=== PATIENT | male | born 1990 | race Two or more races ===

== ENCOUNTER 2024-08-13 17:25 | Emergency (ER) | payer MEDICAID, SELFPAY ==
[2024-08-13 17:30] VITALS: BP 159/50; PULSE 103; RESP 18; TEMP 36.6; O2SAT 93
--- NOTE | 2024-08-13 17:36 | EKG_ITS ---
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
--- NOTE | 2024-08-13 17:39 | XR_ITS ---
Examination: CT brain head without contrast. 2-D sagittal coronal reconstructions Date and time of exam:August 13, 2024 1805 hrs. Indications: Patient fell today, injury to the head, altered mental status CTDI: vol (mGy):47.5 DLP: (mGycm):1000 Technique: Multiple CT axial sections of the brain have been obtained, 5 mm slice thickness. Contrast has not been administered. 2-D sagittal, coronal reconstructions have been obtained Low dose protocols were performed. One or more of the following dose reduction techniques were used; automated exposure control, adjustment of the mA and/or KV according to patient size, use of iterative reconstruction technique. Findings: Focal hyperdense area in the left inferior frontal region, axial image 24, coronal image 14, sagittal image 14 Small area of hemorrhage at this site cannot be excluded Ventricles are not enlarged No mass effect upon the ventricular system Cranial vault appears intact Impression: Recommend repeat CT brain scan with 3 mm slice thickness to exclude 22 mm focus of hemorrhage in the left frontal lobe
--- NOTE | 2024-08-13 17:39 | XR_ITS ---
Examination: CT cervical spine without contrast 2-D sagittal reconstructions 2-D coronal reconstructions 3-D reconstructions. Exam date and time:August 13, 2024 1805 hrs. Indications: Patient fell to the ground today with injury to the neck neck pain CTDI:vol (mGy) 7.63 DLP: (mGycm) 164 Technique: Multiple 2 mm axial sections of the cervical spine have been obtained. The coronal and sagittal reconstructions have been obtained. 3-D reconstructions have been obtained. Low dose protocols were performed. One or more of the following dose reduction techniques were used; automated exposure control, adjustment of the mA and/or KV according to patient size, use of iterative reconstruction technique. Findings: Axial sections demonstrate intact base of the skull. C1 exhibit satisfactory relationship to the odontoid. No acute cervical vertebral body fracture seen. Alignment posterior spinous processes satisfactory. Impression: No acute cervical fracture.
[2024-08-13] MEDS: SODIUM CHLORIDE 0.9% 1000 ML 1,000 ML 999 ML IV (17:43)
--- NOTE | 2024-08-13 17:43 | PD.EDRME ---
Rapid Medical Screening Exam RME Arrival date/time: 08/13/24 17:25 Chief Complaint: Trauma Time Seen by Provider: 08/13/24 17:35 Vital signs: Vital Signs Temperature 97.8 F 08/13/24 17:30 Pulse Rate 103 H 08/13/24 17:30 Respiratory Rate 18 08/13/24 17:30 Blood Pressure 159/50 H 08/13/24 17:30 Pulse Oximetry (%) 93 L 08/13/24 17:30 Oxygen Delivery Method Room Air 08/13/24 17:30 RME Narrative: 34 year old male presents to the Emergency Department BIB after a police pursuit due to agitated behavior. They were chasing him down the hallways and through several stores. He did require tasing and he ?flopped to the ground, onto his back without head injury . He had several episodes of emesis, and has remained poorly cooperative, and not responsive since. On exam he has dried vomit on both sides of his mouth, he does not respond to name, but he does respond to pain stimuli. He has an abrasion over his left shoulder. I have started the initial will be seen by additional provider.
[2024-08-13 17:44] VITALS: PULSE 122; RESP 22; O2SAT 94; BMI 20.3
--- NOTE | 2024-08-13 18:04 | PC.NURSE ---
PT TAKEN TO CT
[2024-08-13 18:15] VITALS: BP 129/74; PULSE 95; RESP 18; TEMP 36.5; O2SAT 95
[2024-08-13 18:20] LABS: Lactate (Lactic Acid) 9.7 mMol/L (0.4-2.0)
[2024-08-13 18:22] LABS: Basophils % (Auto) 1 % (0-2.5); Eosinophils # (Auto) 0.1 Thou/mm3 (0.0-0.5); Eosinophils % (Auto) 2 % (0-10); Hematocrit 39.7 % (41.0-53.0); Hemoglobin 13.6 g/dL (13.5-16.0); Immature Granulocytes % (Auto) 2 % (0-0); Immature Granulocytes Auto 0.14 Thou/mm3 (0.00-0.00); Lymphocytes # (Auto) 2.4 Thou/mm3 (1.0-4.8); Lymphocytes % (Auto) 31 % (10-50); Mean Corpuscular HGB Conc 34.3 g/dl (31.0-37.0); Mean Corpuscular Hemoglobin 26.9 pg (25.0-35.0); Mean Corpuscular Volume 79 fL (80-100); Monocytes # (Auto) 0.5 Thou/mm3 (0.0-0.8); Monocytes % (Auto) 6 % (0-12); Neutrophils # (Auto) 4.5 Thou/mm3 (1.8-7.7); Neutrophils % (Auto) 58 % (37-80); Nucleated Red Blood Cell % 0 /100 WBC (0); Platelet Count 152 Thou/mm3 (140-440); RDW Standard Deviation 34.7 fL (35.1-43.9); Red Blood Count 5.05 Miln/mm3 (4.50-5.90); White Blood Count 7.7 Thou/mm3 (3.8-10.6)
[2024-08-13 18:31] LABS: Alanine Aminotransferase 25 U/L (10-49); Albumin, Serum 4.8 gm/dL (3.5-5.0); Albumin/Globulin Ratio 1.8 (1.2-2.2); Alcohol, Blood Medical 254.6 mg/dL (0-10.0); Alkaline Phosphatase 90 U/L (46-116); Anion Gap 17 (7-16); Aspartate Amino Transferase 27 U/L (0-34); BUN/Creatinine Ratio 13 Ratio (12-20); Bilirubin,Total 0.4 mg/dL (0.3-1.2); Blood Urea Nitrogen 16 mg/dL (9-23); Calcium 9.2 mg/dL (8.3-10.6); Calcium (Corrected) 9.2 mg/dL (8.5-10.1); Carbon Dioxide 15.3 mMol/L (20.0-31.0); Chloride 109 mMol/L (98-107); Creatine Kinase 125 U/L (34-171); Creatinine (Component) 1.2 mg/dL (0.6-1.3); Estimated Creatinine Clearance 83.5 mL/min (>60); Globulin 2.6 gm/dL (2.3-3.5); Glucose 111 mg/dL (74-106); Osmolality,Calculated 283 (275-295); Potassium 3.5 mMol/L (3.4-5.1); Sodium 141 mMol/L (136-145); Total Protein 7.4 gm/dL (5.7-8.2); Troponin I < 0.020 ng/mL (0.0-0.045); eGFR > 60 See Note
--- NOTE | 2024-08-13 18:58 | XR_ITS ---
Examination: CT chest, without intravenous contrast.. 2-D sagittal and coronal reconstructions. 3-D reconstructions. Date and time of exam:August 13, 2024 1805 hrs. Indications: Patient fell today with injury to the chest chest pain abdomen pain CTDI vol (mgy) 13.51 DLP (MGycm)470 Technique: Multiple CT images, 3.0 mm slice thickness, obtained chest, abdomen, pelvis, with the high-resolution 64 slice scanner.. Sagittal and coronal 2-D reconstructions are obtained. 3-D reconstructions Low dose protocols were performed. One or more of the following dose reduction techniques were used; automated exposure control, adjustment of the mA and/or KV according to patient size, use of iterative reconstruction technique. Findings: This study is significantly limited secondary to patient motion Thoracic aorta pulmonary arteries appear intact No esophagus appears thickened No hemopericardium No pneumothorax pulmonary contusion or hemothorax The manubrium and the body the sternum intact, imaging reduced secondary to patient motion No thoracic vertebral body compression fracture Fractures right and left second ribs which appear old but clinical correlation advised No liver splenic or renal lesion or laceration Contracted gallbladder Impression: Study is significantly limited secondary to patient motion Thoracic aorta pulmonary arteries intact No hemopericardium, pneumothorax or pulmonary contusion No abdominal parenchymal laceration
--- NOTE | 2024-08-13 19:03 | PD.EDTRAUM ---
ED Trauma RME/HPI General Chief Complaint: Trauma Stated Complaint: TRAUMA Time Seen by Provider: 08/13/24 17:35 Arrival date/time: 08/13/24 17:25 RME / HPI RME / HPI narrative: 34-year-old male patient was brought to the hospital by the police after he had a [place] on foot and was and was tased. As per the officers the patient fell down to the ground after he got tased but there was no signs of tasers penetration in his body. They reported that the patient started to vomit and became agitated after being was arrested. The vomiting was persistent, of food content. When I assessed the patient he appears to be intoxicated, and was complaining of pain on the side of his chest. His saturations 93 on room air and improved to 95% on 2 L of oxygen. Related Data Allergies Allergy/AdvReac Type Severity Reaction Status Date / Time No Known Allergies Allergy Verified 09/10/23 03:13 ED Exam Narrative Physical exam: GEN: Lethargic, complaining of pain in the right side of the chest. Mouth covered with dry vomit. HEENT: NC/AC, oral mucosa moist, neck supple, no cervical spine tenderness CVS: RRR, S1-S2 present, no murmurs appreciated RESP: Tenderness on the palpation of the left side of the chest on the lateral area, no visible deformity, or bruises. CTAB GI:non distended, mild discomfort on palpation, spontaneous guarding, NBS MSK: able to move all 4 limbs, no lower extremity edema SKIN: warm and dry CHANGE HOUSE ATTENDANT: Unable to assess due to mental status. Course Quality Measures none Orders Category Date Time Status Aspiration precautions ONCE Care 08/13/24 20:14 Active Bedside Blood Glucose NOW Care 08/13/24 19:15 Active EKG (ED ONLY) *Do not use* NOW Care 08/13/24 17:36 Completed Insert IV NOW Care 08/13/24 17:36 Active Urinary Catheter QS Care 08/13/24 19:[address] cervical spine wo con Stat Exams 08/13/24 17:[address] chest abdomen wo Stat Exams 08/13/24 18:[address] head/brain wo con Stat Exams 08/13/24 17:39 Completed EKG (ED Only) Stat Exams 08/13/24 17:36 Draft XR chest 1V Stat Exams 08/13/24 17:36 Taken ABG [Arterial Blood Gas] Stat Lab 08/13/24 20:29 Completed Alcohol, Blood Medical Stat Lab 08/13/24 17:55 Completed BMP [Basic Metabolic Panel] Stat Lab 08/13/24 23:00 Ordered CBC Stat Lab 08/13/24 17:55 Completed CMP [Comprehensive Metabolic Panel] Stat Lab 08/13/24 17:55 Completed Creatine Kinase Stat Lab 08/13/24 17:55 Completed Drug Screen,Urine Stat Lab 08/13/24 23:00 Received Lactate (Lactic Acid) Routine Lab 08/13/24 23:17 Ordered Lactate (Lactic Acid) Stat Lab 08/13/24 17:55 Completed Lactic Acid, 3 HR Stat Lab 08/13/24 21:30 Completed Troponin I Stat Lab 08/13/24 17:55 Completed Urinalysis Stat Lab 08/13/24 23:00 Completed Folic Acid Inj Med 08/13/24 19:14 Discontinued 1 mg IVP X1 ONE Ondansetron Inj [Zofran Inj] Med 08/13/24 18:58 Discontinued 4 mg IV X1 ONE Sodium Chloride 0.9% 1000 ml [Ns] 1,000 ml Med 08/13/24 18:55 Discontinued IV 100 mls/hr Sodium Chloride 0.9% 1000 ml [Ns] 1,000 ml Med 08/13/24 17:35 Discontinued IV 999 mls/hr Sodium Chloride 0.9% 1000 ml [Ns] 1,000 ml Med 08/13/24 23:16 Discontinued IV 999 mls/hr Thiamine Inj [Vitamin B-1 Inj] 100 mg Med 08/13/24 19:14 Discontinued Sodium Chloride 0.9% [Ns] 100 ml IV X1 Vital Signs Vital signs: Vital Signs Temperature 97.8 F 08/13/24 17:30 Pulse Rate 103 H 08/13/24 17:30 Respiratory Rate 18 08/13/24 17:30 Blood Pressure 159/50 H 08/13/24 17:30 Pulse Oximetry (%) 93 L 08/13/24 17:30 Oxygen Delivery Method Room Air 08/13/24 17:30 Trauma MDM Narrative MDM Narrative:: Patient remained intoxicated and lethargic. He was given 1 L bolus of normal saline improved his heart rate from 103 on presentation to 95% and his blood pressure went down from 1 59-1 29 systolic. Temperature was within normal limits and saturation was 93 on room air was given 2 L of oxygen which improved his oxygen saturation to 95%. Chest x-ray, cervical CT, and brain CT seems to be normal however pending official reads. Due to the persistent tenderness in the right side of the stretcher on the left side of the chest and abdominal wall, and the persistent vomiting prescribe the patient Alexis, will order for him chest and abdomen CT scan to rule out any visceral injuries. And also to rule out any signs of aspiration due to his hypoxia. Specially after he was found to have anion gap metabolic acidosis and lactic acid level of 9.4. CT chest abdomen were negative for any acute injuries or visceral injuries. Lactic acid repeat went down from 9.4-2.0 with IV fluids. Patient vomiting has stopped, and he was sleeping comfortably on bed. Patient will be ready for discharge today back to police department. Patient data External records reviewed:: [facility] previous records Clinical information provided by:: patient and law enforcement Social determinants that could affect healthcare access:: alcohol use Patient has the following chronic illnesses:: None How is presenting disease/condition affected by chronic disease/condition?: no chronic disease Evaluation data The following diagnostics were reviewed and interpreted by me:: lab results, radiology exam(s) and EKG tracing(s) Lab and/or radiology exams considered but not ordered:: None Interpretation Summary: Multiple simple blunt trauma Medications / Prescriptions Medications or Prescriptions considered but not ordered:: None Medication administrations:: Medication Administration History Discontinued Medications Folic Acid (Folic Acid Inj 1 Mg/0.2 Ml) 1 mg IVP X1 ONE Stop: 08/13/24 19:15 Last Admin: 08/13/24 19:58 Dose: 1 mg Documented By: CCT Sodium Chloride (Ns) 1,000 mls @ 999 mls/hr IV .Q1H1M ONE Stop: 08/13/24 18:35 Last Infusion: 08/13/24 19:02 Dose: Infused Documented By: Admin: 08/13/24 17:43 Dose: 999 mls/hr Documented By: VG Sodium Chloride (Ns) 1,000 mls @ 100 mls/hr IV .Q10H GURWINDER Stop: 08/14/24 04:54 Last Admin: 08/13/24 19:58 Dose: 100 mls/hr Documented By: CCT Thiamine HCl 100 mg/ Sodium (Chloride) 101 mls @ 202 mls/hr IV X1 ONE Stop: 08/13/24 19:43 Last Infusion: 08/13/24 21:50 Dose: Infused Documented By: Admin: 08/13/24 19:57 Dose: 202 mls/hr Documented By: CCT Sodium Chloride (Ns) 1,000 mls @ 999 mls/hr IV .Q1H1M ONE Stop: 08/14/24 00:16 Ondansetron HCl (Ondansetron Inj 2 Mg/Ml Inj 2 Ml) 4 mg IV X1 ONE; Protocol Stop: 08/13/24 18:59 Last Admin: 08/13/24 19:57 Dose: 4 mg Documented By: CCT as above if given Consultations Consultation(s) initiated? (list below): No Diagnosis Trauma Differential Diagnosis: other (multiple simple blunt trauma) Most likely diagnosis given after review of the tests above:: Alcohol intoxication Admission Indicated Admission indicated?: not indicated Admission Request Was there a request for admission?: No Disposition Plan Disposition Plan: Discharge Discharge Attestation Discharge Attestation: The patient and all family members were given an opportunity to ask questions and understood the discharge instructions. Discharge instructions specifically effects, indications for sooner follow up or return to the emergency department, and the expected course of current diagnosis. Patient condition: Stable Discharge Plan Plan Patient Disposition: Senior Living/Court/Law Prescriptions/Referrals Referrals: No Primary/Family,Physician [Primary Care Provider] - In 1 week Problem List Clinical Impression: Alcohol intoxication, Blunt trauma of abdominal wall Patient/Caregiver Discharge Instructions Print Language: Sami
--- NOTE | 2024-08-13 19:34 | PC.NURSE ---
Pt taken to CT via alex
--- NOTE | 2024-08-13 19:45 | PRELIM_ITS ---
CT scan of the head without intravenous contrast (axial sections with sagittal and coronal reformats) August 13, 2024 1805 hours Clinical History: Trauma, AMS Comparison: No prior study is available f or comparison. Findings:No evidence of intracranial hemorrhage, mass effect or midline shift. The palmer tricles and CSF spaces are unremarkable. The calvarium is intact. The mastoid air cells and the visua lized paranasal sinuses are clear.Impression:No evidence of intracranial hemorrhage, midline shift or calvarial fracture. Report Electronically Signed By: Sonu Gann 08/13/2024 7:44:49 PM [EST ]
--- NOTE | 2024-08-13 19:48 | PRELIM_ITS ---
CT scan of the cervical spine without intravenous contrast (axial sections with sagittal and coronal reformats) August 13, 2024 1805 hours Clinical History: Trauma Comparison: No prior study is availa ble for comparison. Findings:There is no fracture or traumatic subluxation. There is straightening of the cervical lordosis, which may be due to muscle spasm or positioning. The prevertebral soft tissue s are unremarkable. There is mild scarring at the lung apices bilaterally.Impression:No evidence of f racture or traumatic subluxation. Report Electronically Signed By: Sonu Gann 08/13/2024 7: 47:39 PM [EST]
[2024-08-13] MEDS: THIAMINE INJ 100 MG in SODIUM CHLORIDE 0.9% 100 ML 202 MG IV (19:57)
[2024-08-13] MEDS: ONDANSETRON INJ 2 MG/ML INJ 2 ML 4 MG IV (19:57)
[2024-08-13] MEDS: SODIUM CHLORIDE 0.9% 1000 ML 1,000 ML 100 ML IV (19:58)
[2024-08-13] MEDS: FOLIC ACID INJ 1 MG/0.2 ML IVP (19:58)
[2024-08-13 20:00] VITALS: BP 114/71; PULSE 91; RESP 16; TEMP 36.3; O2SAT 96
[2024-08-13 20:37] LABS: Base Excess -4 (-3-3); HCO3 22 mEq/L (20-26); Inspired Oxygen, FIO2 21 %; O2 Saturation 97 % (91-98); PCO2 41 mmHg (32.0-48.0); PO2 89 mmHg (83-108); pH, Arterial 7.34 (7.35-7.45)
[2024-08-13 20:40] LABS: Allen Test Performed/OK; Puncture Site Right Radial
[2024-08-13 21:04] LABS: Reflex Lactate? Y
[2024-08-13 23:00] VITALS: BP 137/79; PULSE 81; RESP 18; TEMP 37; O2SAT 99
--- NOTE | 2024-08-13 23:06 | PRELIM_ITS ---
CT scan of the chest and abdomen without intravenous contrast. Axial sections with sagittal and coron al reformats. August 13, 2024 at 1936 hoursClinical History: Persistant vomiting, shortness of magaly th, post trauma.Comparison: No prior study is available for comparison. Findings:The evaluation is li mited due to motion artifact. The lungs are clear. There is no pneumothorax or pleural effusion. The aorta is normal on this noncontrast study. No evidence of mediastinal mass or lymphadenopathy. There is no pericardial effusion.The liver, gallbladder, spleen, pancreas, adrenals and kidneys are unremar kable on this noncontrast study.No evidence of bowel obstruction. The appendix is not visualized. The re is no free fluid or free air.No acute fracture is identified. Partially healed fractures of right and left anterior second ribs. Impression:No visceral or bony injury to the chest or abdomen. Repor t Electronically Signed By: Sonu Gann 08/13/2024 11:05:50 PM [EST]
[2024-08-13 23:17] LABS: Collection Type, Urine Clean Catch; RBC,Urine 0 /hpf (0-3); Squamous Epithelial Cell,Urine 0 /hpf (0-5); WBC,Urine 0 /hpf (0-5)
[2024-08-13 23:49] LABS: Bilirubin,Urine Negative (Negative); Blood,Urine Negative (Negative); Clarity,Urine Clear (Clear/Hazy); Color,Urine Colorless (Lt Yel-Yel); Glucose, Urine Negative (Negative); Hyaline Casts,Urine < 1 /hpf (0-1); Ketones,Urine Negative (Negative); Leukocyte Esterase,Urine Negative (Negative); Nitrite,Urine Negative (Negative); Protein,Urine Trace (Neg - Trace); Specific Gravity,Urine 1.014 (1.001-1.035); Urobilinogen,Urine Negative mg/dL (0.0-1.0)
[2024-08-14 00:01] LABS: Amphetamine/Methamp Scrn,U Positive (Negative); Barbiturate Screen,Urine Negative (Negative); Benzodiazepines Screen,Urine Negative (Negative); Benzoylecgonine Screen, Ur Negative (Negative); Fentanyl Screen,Urine Negative (Negative); Opiate Screen,Urine Negative (Negative); THC Screen,Urine Negative (Negative)
[2024-08-14 01:04] LABS: Anion Gap 9 (7-16); BUN/Creatinine Ratio 15 Ratio (12-20); Blood Urea Nitrogen 12 mg/dL (9-23); Calcium 8.1 mg/dL (8.3-10.6); Carbon Dioxide 21.7 mMol/L (20.0-31.0); Chloride 113 mMol/L (98-107); Creatinine (Component) 0.8 mg/dL (0.6-1.3); Estimated Creatinine Clearance 125.2 mL/min (>60); Glucose 111 mg/dL (74-106); Osmolality,Calculated 287 (275-295); Potassium 3.9 mMol/L (3.4-5.1); Sodium 144 mMol/L (136-145); eGFR > 60 See Note
[2024-08-14 02:00] VITALS: BP 117/78; PULSE 100; RESP 18; TEMP 36.7; O2SAT 100
== END 2024-08-14 02:00 ==
PROVIDERS: Emergency Medicine; Student in an Organized Health Care Education/Training Program; Emergency Provider Emergency Medicine
DX: Z02.89 Encounter for other administrative examinations (principal); S39.91XA Unspecified injury of abdomen, initial encounter; F10.929 Alcohol use, unspecified with intoxication, unspecified; R00.0 Tachycardia, unspecified; S19.9XXA Unspecified injury of neck, initial encounter; S09.90XA Unspecified injury of head, initial encounter; S29.9XXA Unspecified injury of thorax, initial encounter; W18.30XA Fall on same level, unspecified, initial encounter; Y90.8 Blood alcohol level of 240 mg/100 ml or more; Y35.833A Legal intervention involving a conducted energy device, suspect injured, initial encounter; Y92.512 Supermarket, store or market as the place of occurrence of the external cause
CPT/HCPCS: 36415; 36600; 70450; 71045; 71250; 72125; 74150; 80048; 80053; 80307; 80320; 81001; 82550; 82803; 83605; 84484; 85025; 93005; 96361; 96365; 96366; 96375; 99284; J2405; J3411; J3490; J7030; J7050; G0480